=== PATIENT | male | born 1990 | race Caucasian/White ===

== ENCOUNTER 2017-08-02 20:42 | Emergency (ER) | payer MEDICAID ==
[2017-08-02] MEDS ORDERED: NS 1,000 ML IV ONE (21:04)
[2017-08-02 21:12] LABS: PLATELET COUNT 192 10^3/uL (150-400)
[2017-08-02 21:22] LABS: INR 1.18 (0.83-1.16); PROTIME(PATIENT) 14.9 SEC (12.0-15.0)
[2017-08-02] MEDS ORDERED: POTASSIUM CL 20 MEQ/15 ML UDCUP PO ONE (21:37)
--- NOTE | 2017-08-02 21:46 | EDPHY ---
H & P Stated Complaint: pt c/o of L sided rib pain. also noted jaundice t/o and abd distention. Time Seen by Provider: 08/02/17 21:04 HPI/ROS: This patient complains of left-sided rib pain that he attributes to a friend standing on his back to tried a a just a"Crick in his back 2 weeks ago but the friend was 170 lb and on the left side of his back causing some rib pain. He has had severe rib pain since then that worsens with a deep breath. He also complains of jaundice, scleral icterus worsening over the past 2 weeks with abdominal distension and 25 lb weight gain over the past week or so. His mother , brother and friend brought him in by private vehicle for evaluation of the symptoms. The patient reports intensity the rib pain is 8/10 and worsens with a deep breath or with certain movements. He reports associated dry cough for 2 days duration. ROS: Constitutional: No fevers. HEENT: No URI symptoms. No sore throat. No other complaints. Neuro: He denies any headache. No recent head injuries. Denies any numbness tingling or focal weakness. Pulmonary: He denies shortness of breath. He does have pain left side with a deep breath. No hemoptysis. No sputum production. Cardiovascular: He denies lightheadedness. He denies any lower extremity swelling. G I: He denies any abdominal pain. No bloody stools. No dark tarry stools. No nausea or vomiting. He reports he has diminished appetite but is still eating and drinking. : No hematuria. He does admit slightly darker urine than usual recently. Integumentary: He denies any easy bruising. Complete review of symptoms otherwise negative. 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 His family reports the drinks more than that daily.) Drug Use: Marijuana (Patient denies any IV drug use or other drug use besides marijuana.) - Physical Exam Exam: Vital signs are notable for tachycardia to 123, tachypnea at 28. Other vitals are normal General Appearance: Alert, no distress. Eyes: Pupils equal and round no pallor or injection. Patient has notable scleral icterus bilaterally. ENT, Mouth: Mucous membranes dry. Respiratory: There are no retractions, lungs are clear to auscultation. Cardiovascular: Tachycardic with no murmur gallop or rub. Gastrointestinal: Positive hepatomegaly with liver palpable 2 cm below the right costal margin. Positive mild splenomegaly as well. Positive belly distension but no significant tenderness. Do not appreciate a sick caution splash. Neurological: GCS 15. No asterixis. No significant tremor. No significant lateral nystagmus. No other focal deficits appreciated. Skin: Warm and dry, no rashes. Musculoskeletal: Neck is supple nontender. Extremities are symmetrical, full range of motion. Psychiatric: Flat affect. DIFFERENTIAL DIAGNOSIS: After history and physical exam differential diagnosis was considered for alcoholic liver disease/hepatitis, viral hepatitis pancreatitis, cholecystitis, chest wall injury, rib fracture, pneumothorax, pneumonia Constitutional: Initial Vital Signs Temperature (C) 36.8 C 08/02/17 21:02 Heart Rate 123 H 08/02/17 21:02 Respiratory Rate 28 H 08/02/17 21:02 Blood Pressure 134/86 H 08/02/17 21:02 O2 Sat (%) 97 08/02/17 21:02 O2 Delivery Mode Room Air Allergies/Adverse Reactions: onions Allergy (Uncoded 10/29/12 23:48) Home Medications: Medication Instructions Recorded Ibuprofen 08/02/17 Potassium Chloride 20 meq PO DAILY #7 tablet.er 08/02/17 Medical Decision Making - Diagnostics EKG Interpretation: 12 lead EKG performed at 9:47 p.m. Indication chest pain and hypokalemia Reveals sinus rhythm 106 At intervals: Normal throughout [place]: P of 39, QRS of 80, T of 123 ST segments: Biphasic T in lead V2 otherwise normal. No prior EKGs for comparison. Overall assessment sinus tachycardia with nonspecific T-wave abnormalities ED Course/Re-evaluation: IV normal saline bolus with tachycardia improved to a rate of 104 After review of labs, patient has hypokalemia of 2.6, elevated LFTs with AST to ALT ratio of nearly 4, mildly elevated alk-phos, mildly elevated lipase. CBC reveals leukocytosis. 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 INR mildly elevated at 1.18 Serum Alcohol of 245 Patient treated with potassium chloride-40 mEq p.o. The patient declines IV Ativan for CIWA score of 4 Discussion: Patient presents with alcohol hepatitis/alcohol liver disease judging by his history of daily heavy alcohol use, and AST to ALT ratio of nearly 4:1. He also has hyperkalemia - question non reported vomiting or poor p.o. Intake. His hypoalbuminemia and mild coagulopathy are also consistent with severe alcoholic liver disease as is his severe jaundice. I think that his 25 lb weight gain over a week per his report and abdominal distension is consistent with ascites consistent from portal htn/ cirrhosis. I doubt SBP given lack of belly pain, tenderness or fever. However, I recommended further workup including abdominal ultrasound and/or CT to rule out biliary disease, further evaluate liver disease, and further w/u potential infectious disease. However, the patient declines further workup at this time despite my urging and his family's urging (mother, brother and grandmother over- the phone). I counseled this patient regarding his alcoholic liver disease-alcoholic hepatitis which is severe given his current findings as well as his hypokalemia explaining the medical need for admission. However the patient adamantly declines admission. While he has a significantly elevated alcohol level currently, he maintains competency in terms of his decision making. He appears clinically sober despite his high alcohol this time-walking without ataxia, having no slurred speech and no significant lateral nystagmus. His mother and brother urged him to be admitted but he refuses. I Explained that we could treat him with IV benzodiazepines and other medications to make him more comfortable but he is simply unwilling to be admitted at this time. The patient signed an AMA form at 2300 with family present. - Data Points Laboratory Results: Laboratory Results 08/02/17 21:05 08/02/17 21:05 08/02/17 22:00 Hepatitis A IgM Ab NEGATIVE (NEGATIVE) Hep Bs Antigen NEGATIVE (NEGATIVE) Hep B Core IgM Ab NEGATIVE (NEGATIVE) Hepatitis C Antibody NEGATIVE (NEGATIVE) Medications Given: Discontinued Medications Sodium Chloride (Ns) 1,000 mls @ 0 mls/hr IV EDNOW ONE; Wide Open PRN Reason: Protocol Stop: 08/02/17 21:05 Last Admin: 08/02/17 21:10 Dose: 1,000 mls Potassium Chloride (Potassium Chloride Oral Liquid) 40 meq PO EDNOW ONE Stop: 08/02/17 21:38 Last Admin: 08/02/17 21:41 Dose: 40 meq Departure - Departure Disposition: Home, Routine, Self-Care Clinical Impression: Alcoholic hepatitis, Jaundice, Hypokalemia Condition: Fair Instructions: Hypokalemia (ED), Ascites (ED), Alcoholic Hepatitis (ED) Additional Instructions: Diagnoses: 1. Alcohol hepatitis 2. Jaundice 3. Hypokalemia Plan: We recommended admission. You declined admission and further workup against medical advice. This could result in heart dysrhythmia, cardiac arrest , seizure, stroke, and even as well as further progression of your severe alcoholic liver disease. Take potassium 20 mEq a day Follow up with primary care physician listed below for recheck. Call him tomorrow to arrange for follow-up appointment later this week. Go to the [facility] Emergency Department for any progression of her symptoms. Referrals: NONE *PRIMARY CARE P,. [Primary Care Provider] - As per Instructions Bernabe Leon MD [Medical Doctor] - As per Instructions Prescriptions: Potassium Chloride 20 meq PO DAILY #7 tablet.er
[2017-08-02 23:12] VITALS: BP 108/65
[2017-08-03 11:16] LABS: HEPATITIS B SURFACE ANTIGEN NEGATIVE (NEGATIVE)
[2017-08-03 11:22] LABS: HEPATITIS A ANTIBODY IGM (BCH) NEGATIVE (NEGATIVE); HEPATITIS B CORE AB IGM NEGATIVE (NEGATIVE)
[2017-08-03 11:34] LABS: HEPATITIS C ANTIBODY TOTAL NEGATIVE (NEGATIVE)
--- NOTE | 2017-08-03 19:25 | CPEKG ---
Heart Rate: 106 RR Interval: 566 P-R Interval: 160 QRSD Interval: 94 QT Interval: 336 QTC Interval: 447 P [place]: 39 QRS [place]: 8 T Wave [place]: 123 EKG Severity - ABNORMAL ECG - EKG Impression: SINUS TACHYCARDIA EKG Impression: NONSPECIFIC T ABNORMALITIES, LATERAL LEADS Electronically Signed By: Elvis Del Castillo 04-Aug-2017 07:09:21
== END 2017-08-02 23:12 | disposition home or self-care (01) ==
LOC: CED 20:42
DX: K70.10 Alcoholic hepatitis without ascites (principal); E87.6 Hypokalemia; E86.9 Volume depletion, unspecified; F17.200 Nicotine dependence, unspecified, uncomplicated
CPT/HCPCS: 71046-PO; 80053-PO; 82248-PO; 83690-PO; 85025-PO; 85610-PO; 85730-PO; G0472; G0480